=== PATIENT | female | born 1995 | race Hispanic/Latino ===

== ENCOUNTER 2018-10-09 05:29 | Inpatient (IN) | payer MEDICAID, SELFPAY ==
[2018-10-09 06:25] VITALS: BMI 26.8
--- NOTE | 2018-10-09 07:27 | PDOC.FPROB ---
FMR OB H&P: HPI - History of Present Illness Chief Complaint: contractions Indentification: at 38.1 wks by 12.3wks US History of Present Illness: Patient comes in for painful contractions which started at 0200 this morning. She states she had a little bloody show but not much. Denies ROM, bleeding/ burning with urination. She feels baby moving often. First baby was born post dates, she is unsure of exact gestational age. Denies headache, blurry vision, SOB, or swelling. Primary Care Physician: FMR OB H&P: Current - Care : 2 Para: 1 Gestational age: 38.1 Due date: 10/22/18 Dating Criteria: 12.3 wk US - OB Labs Blood type: O RH: positive Antibody Screen: negative HIV: negative RPR: negative HepBsAg: negative Rubella: immune Gonorrhea: negative Chlamydia: negative Pap Smear: negative 1 hour gtt: negative FMR OB H&P: History - Past Medical History PMH: denies - OB History OB History: post dates PPH, D/C, chorioamnionitis with first baby - [employer] History [employer] History: denies STIs or abnormal PAP - Surgical History Sx History: denies - Social History Social History: no smoking, alcohol, or drugs - Family History Family History: denies breast/uterine cancers [facility]MR OB H&P: Medications - Current Home Medications: Medication Instructions Recorded Confirmed Type PNV No.118/Iron Fumarate/FA 1 tablet PO DAILY 06/09/14 10/09/18 History [ 19 Chewable Tablet] Ferrous Sulfate 325 mg PO BID #0 tablet 06/14/14 10/09/18 Rx Doxylamine Succinate/Vit B6 10 mg PO DAILY 10/09/18 10/09/18 History [Laura MOY] Allergies/Adverse Reactions: Allergies Allergy/AdvReac Type Severity Reaction Status Date / Time No Known Allergies Allergy Verified 10/09/18 06:26 FMR OB H&P: ROS - Review of Systems General: denies: fever/chills, night sweats, fatigue Eyes: denies: vision changes ENT: denies: nasal congestion Cardiovascular: denies: palpitation, edema Respiratory: denies: cough, shortness of breath Gastrointestinal: denies: abdominal pain, nausea, vomiting, diarrhea Genitourinary (Female): denies: dysuria, hematuria Musculoskeletal: denies: pain, stiffness Neurologic: denies: numbness, syncope, loss of counsciousness Integumentary: denies: rash Hematologic/Lymphatic: denies: prolonged or excessive bleeding FMR OB H&P: Vital Signs - Maternal Vital signs: Vital Signs - First Documented Temp Pulse Resp BP 98.9 F 77 20 117/82 10/09/18 06:06 10/09/18 06:06 10/09/18 06:06 10/09/18 06:06 - Heart Tones Baseline: 120 Variability: moderate Acceleration: present Deceleration: absent Category: category 1 [place] [facility] [place] contractions every: 3-5 min FMR OB H&P: Physical Exam - Physical Exam General: NAD, awake, alert and oriented HEENT: normocephalic and atraumatic, PERRLA, EOMI Neck: supple Heart: RRR, normal S1/S2, no murmurs/rubs/gallops, pulses present General: CTAB, no respiratory distress, good air movement, no wheezing Abdomen: soft, gravid, non-tender Musculoskeletal: normal gait and station, pulses present Neurological: cranial nerves II through XII intact Skin: no rash, good tugor, capillary refill <2 seconds FMR OB H&P: A/P - Problem List (1) Current Visit: Yes Status: Acute Discussion: Date/Time: 10/09/18 0725 23 yo at 38.1 wks here for contractions starting at 0200 # Labor check - cxns q3-5min, cat 1 strip - 4/50/-3 at 0710 - ant fundal placenta, hadlock 44% - PO hydrate, re-check in 2 hours, triage for now - GBS neg # Transamnititis - ALT of 46 - Hep A total Ab positive - then Hep A IgM, IgG - latest CMP WNL This H&P was discussed with Dr. Garcia who agrees with the above documentation and plan.
[2018-10-09] MEDS ORDERED: Ondansetron PF 4 MG/2 ML Vial IVP PRN ×2 (09:17→12:30)
[2018-10-09] MEDS ORDERED: Promethazine HCl 25 MG/ML VIAL IM PRN ×2 (09:17→12:30)
[2018-10-09] MEDS ORDERED: NS / Oxytocin 40 units/1000ml 1,000 ML IV PRN (09:17)
[2018-10-09] MEDS ORDERED: Ibuprofen 800 MG TAB PO PRN (09:17)
[2018-10-09] MEDS ORDERED: Lidocaine 1% (PF) 30 ML VIAL SC PRN (09:17)
--- NOTE | 2018-10-09 09:20 | PDOC.LDPN ---
Labor & Delivery Progress Note - Subjective Subjective: painful contractions - Objective Vital signs reviewed and normal: yes General: NAD, breathing through contractions Uterine fundus: non tender Dilation: 7 Effacement: 90% Station: -2 FHT: category 1 [place] contractions every: 3-5min - Assessment (1) Current Visit: Yes Status: Acute -: 23 yo at 38.1 wks here for contractions starting at 0200 # [place], active labor - cxns q3-5min, cat 1 strip - 4/50/-3 at 0710 - 7/90/-2 at 0910 - ant fundal placenta, hadlock 44% - GBS neg # Transamnititis - ALT of 46 - Hep A total Ab positive - then Hep A IgM, IgG - latest CMP WNL - will repeat CMP # Hx PPH, retained placenta - will have 2 units cross-matched - misoprostil available at bedside This H&P was discussed with Dr. Garcia who agrees with the above documentation and plan.
[2018-10-09] MEDS: Lactated Ringer's 1,000 ML IV SCH ×2 (09:30→11:06)
[2018-10-09 09:49] LABS: Hemoglobin 10.1 g/dL (12.0-16.0); Mean Corpuscular HGB CONC 32.2 g/dL (32.0-36.0); Mean Corpuscular Hemoglobin 24.3 pg (27.0-31.0); Mean Corpuscular Volume 75.7 fL (78.0-98.0); Mean Platelet Volume 12.4 fL (7.4-10.4); Platelet Count 152 thou/uL (130-400); RBC Distribution Width 15.8 % (11.5-14.5); Red Blood Cell (RBC) Count 4.16 mill/uL (4.20-5.40); White Blood Cell (WBC) Count 8.6 thou/uL (4.8-10.8)
[2018-10-09] MEDS ORDERED: Fentanyl 4 mcg/Bup 0.1% Cadd 100 ML ONE (10:06)
[2018-10-09 10:29] LABS: ALT (SGPT) 24 U/L (8-55); AST (SGOT) 30 U/L (5-34); Albumin 3.4 g/dL (3.5-5.0); Alkaline Phosphatase 236 U/L (40-150); Anion Gap 13 mmol/L (10-20); BUN (Urea Nitrogen) 5 mg/dL (7.0-18.7); Bilirubin, Total 0.4 mg/dL (0.2-1.2); Calc. Creatinine Clearance 140 mL/min (70-130); Calcium 9.3 mg/dL (7.8-10.44); Carbon Dioxide 20 mmol/L (22-29); Chloride 105 mmol/L (98-107); Estimated GFR-MDRD Greater than 90; Globulin 3.5 g/dL (2.4-3.5); Glucose 83 mg/dL (70-105); Protein, Total 6.9 g/dL (6.0-8.3); Sodium 134 mmol/L (136-145)
[2018-10-09] MEDS ORDERED: Lidocaine 1.5% w/Epi 1:200K 30 ML VIAL (Epid Use) ONE (10:29)
[2018-10-09 10:45] LABS: Syphilis Antibody Nonreactive (Nonreactive); Syphilis Antibody Index 0.03 S/CO (<1.00 Non-Reactive)
[2018-10-09 10:46] LABS: HBSAg Index 0.23 S/CO (0-0.99); Hep B Surf Ag Non-Reactive S/CO (NonReactive)
[2018-10-09] MEDS ORDERED: Misoprostol 200 MCG TAB ONE (11:08)
[2018-10-09] MEDS ORDERED: NS / Oxytocin 40 units/1000ml 1,000 ML ONE (11:08)
[2018-10-09] MEDS ORDERED: Lidocaine 1% (PF) 30 ML VIAL ONE (11:08)
[2018-10-09] MEDS ORDERED: Carboprost 250 MCG/ML AMP ONE (11:09)
--- NOTE | 2018-10-09 12:10 | PDOC.LDPN ---
Labor & Delivery Progress Note - Subjective Subjective: comfortable - Objective Vital signs reviewed and normal: yes General: NAD, resting Uterine fundus: non tender Dilation: 6 Effacement: 90% Station: -2 FHT: category 1 [place] contractions every: 5 min AROM: clear fluid FSE placed: yes - Assessment (1) Current Visit: Yes Status: Acute -: 23 yo at 38.1 wks here for contractions starting at 0200 # [place], active labor - cxns q3-5min, cat 1 strip - 4/50/-3 at 0710 - 7/90/-2 at 0910 - 6/90/-2 at 1200, AROM, lots of clear fluid - ant fundal placenta, hadlock 44% - GBS neg - consider amnioinfusion and IUPC if variable decels # Transamnititis - ALT of 46 - Hep A total Ab positive - then Hep A IgM, IgG - latest CMP WNL - Normal AST/ALT today - elevated ALP # Hx PPH, retained placenta - will have 2 units cross-matched - misoprostil available at bedside This H&P was discussed with Dr. Nolan who agrees with the above documentation and plan. Addendum - Attending - Attending Attestation Date/Time: 10/09/18 0862 I personally evaluated the patient and discussed the management with Dr. Bowling. I agree with the History, Examination, Assessment and Plan documented above with any addition or exceptions noted below.
[2018-10-09] MEDS ORDERED: Eucerin (Mineral Oil/Petrolatum,White) 30 gm Jar TOP PRN (12:30)
[2018-10-09] MEDS ORDERED: Fentanyl 4 mcg/Bupivacaine 0.1% Cassette 100 ML EPIDURAL SCH (12:30)
[2018-10-09] MEDS ORDERED: Acetaminophen 325 MG TAB PO PRN (12:30)
[2018-10-09] MEDS ORDERED: Lactated Ringer's 500 ML IV PRN (12:30)
[2018-10-09] MEDS ORDERED: diphenhydrAMINE 50 MG/ML VIAL IVP PRN (12:30)
[2018-10-09] MEDS ORDERED: Communication Order-Pharmacy FS SCH (12:30)
[2018-10-09] MEDS ORDERED: Naloxone HCl 0.4 mg/ml Vial IVP PRN ×2 (12:30)
[2018-10-09] MEDS ORDERED: ePHEDrine/0.9% NaCl/PF SYRINGE 50 mg/10 ml SLOW IVP PRN (12:30)
[2018-10-09] MEDS ORDERED: CEFAZOLIN 2 GM/50 ML BAG ONE (12:32)
[2018-10-09] MEDS ORDERED: Bicitra 30 ML UDCUP ONE (12:32)
--- NOTE | 2018-10-09 12:49 | PDOC.LDPN ---
Labor & Delivery Progress Note - Subjective Subjective: comfortable - Objective Vital signs reviewed and normal: yes General: NAD, breathing through contractions Uterine fundus: non tender Dilation: 6 Effacement: 90% Station: 0 FHT: category 1 [place] contractions every: 3 min AROM: clear fluid IUPC placed: yes FSE placed: yes Resuscitative measures: amniofusion - Assessment (1) Current Visit: Yes Status: Acute -: 23 yo at 38.1 wks here for contractions starting at 0200 # [place], active labor - cxns q3-5min, cat 1 strip - 50/-3 at 0710 - 90/-2 at 0910 - 90/-2 at 1200, AROM, lots of clear fluid - /0 at 1245, IUPC in place, amnioinfusion - ant fundal placenta, hadlock 44% - GBS neg - there were multiple deep decelerations, variable after AROM - extensive exam for cord prolapse was completed, no cord was identified - IUPC was placed and amnioinfusion initiated - after amnio-infusion tracing is improved, will monitor closely # Transamnititis - ALT of 46 - Hep A total Ab positive - then Hep A IgM, IgG - latest CMP WNL - Normal AST/ALT today - elevated ALP # Hx PPH, retained placenta - will have 2 units cross-matched - misoprostil available at bedside This H&P was discussed with Dr. Nolan who agrees with the above documentation and plan. Addendum - Attending - Attending Attestation Date/Time: 10/09/18 7018 I personally evaluated the patient and discussed the management with Dr. Bowling. I agree with the History, Examination, Assessment and Plan documented above with any addition or exceptions noted below.
--- NOTE | 2018-10-09 14:20 | PDOC.LDPN ---
Labor & Delivery Progress Note - Objective Vital signs reviewed and normal: yes General: NAD Uterine fundus: palpable contractions Dilation: 10 cm Effacement: 100% Station: 2+ FHT: category 2, acceleration absent, early decelerations, variability present [place] contractions every: 2-4 minutes Other exam findings: REGGIE position IUPC placed: yes Resuscitative measures: amniofusion, maternal IV fluids, maternal position change - Assessment (1) Current Visit: Yes Status: Acute Qualifiers: Weeks of gestation: 38 weeks Qualified Code(s): Z3A.38 - 38 weeks gestation of Plan: continue plan of care -: Variable decels resolved with resuscitative measures above, including amnioinfusion. Pt. now completely dilated and at +1-+2 station. Trial of pushing demonstrated pretty ineffective push with epidural. Will allow mom to "labor down" for another hour and reassess baby for further descent (hopefully to ) before starting to push.
[2018-10-09] MEDS ORDERED: Lanolin Ointment 7 GM TUBE TOP PRN (15:31)
[2018-10-09] MEDS ORDERED: Bisacodyl 10 MG SUPP PR PRN (15:31)
[2018-10-09] MEDS ORDERED: Milk Of Magnesia 30 ML UDCUP PO PRN (15:31)
--- NOTE | 2018-10-09 15:36 | PDOC.OPDEL ---
OB Operative/Delivery Note Delivery Dr/Surgeon: Pope Alexander Szynkarski Pre-Delivery Diagnosis: active labor Procedure/Post Delivery Dx: spontaneous vaginal delivery Anesthesia: epidural - Findings A Sex: female - 1 min: 8 - 5 min: 9 - Additional Findings/Plan Placenta delivered: spontaneous Repaired Obstetrical Laceration: 1st degree Compilations/Other Findings: This is 23yo F @ 38.1wks who delivered a viable F infant at 1513 on . QBL 232ml. Following an antepartum course complicated by variable decelerations that recovered, a vigorous F was delivered over an intact perineum in the occipitoanterior position. Anterior Shoulder and then remainder of the body delivered. Nuchal cord x 1 around neck and left foot. The head was held down and mouth and nares were bulb suctioned. Cord clamped after delayed cord clamping and cut and cord blood collected. Placenta delivered intact in the [place] presentation with a 3 vessel cord noted. Fundal massage was performed and the fundus was firm. The cervix and vagina were inspected and first degree laceration noted and repaired with 2-0 vicryl with figure of eight stitch with good approximation and hemostasis. went to nursery in good condition for routine care. Apgars were 8/9 at 1 & 5 minutes, respectively. Patient tolerated delivery well and went to after routine recovery/care. Post delivery plan: routine recovery
[2018-10-09 15:40] LABS: Actual Bicarbonate (HCO3a) 19.1 mEq/L (22-28); Analyzer IN Cardio OR; Base Excess (BEa) -5.4 mEq/L (-2.0 to +3.0)
[2018-10-09] MEDS: Ferrous Sulfate 325 MG TAB PO SCH (19:29)
[2018-10-09] MEDS: Docusate Calcium (SURFAK) 240 MG CAP PO SCH (22:17)
[2018-10-10] MEDS: Lactated Ringer's 1,000 ML IV SCH (05:04)
[2018-10-10 07:43] LABS: Hemoglobin 8.8 g/dL (12.0-16.0); Mean Corpuscular HGB CONC 31.9 g/dL (32.0-36.0); Mean Corpuscular Hemoglobin 24.7 pg (27.0-31.0); Mean Corpuscular Volume 77.6 fL (78.0-98.0); Mean Platelet Volume 12.2 fL (7.4-10.4); Platelet Count 119 thou/uL (130-400); RBC Distribution Width 15.9 % (11.5-14.5); Red Blood Cell (RBC) Count 3.57 mill/uL (4.20-5.40); White Blood Cell (WBC) Count 10.6 thou/uL (4.8-10.8)
--- NOTE | 2018-10-10 08:18 | PDOC.PP ---
Post Progress Note Post Day #: 1 Subjective: Patient is feeling well. She had changed her pad x2 overnight. States about like a normal menses for her. Denies weakness or light-headedness. She is eating well, ambulating well, and passing gas. She denies abdominal pain. She states she would like to go home today if possible. PO intake tolerated: yes Flatus: yes Ambulation: yes Vital Signs (12 hours) Temp Pulse Resp BP Pulse Ox 10/10/18 04:10 97.6 F 60 18 107/60 10/10/18 00:55 56 L 18 144/87 H 10/09/18 22:30 97.6 F 59 L 18 119/66 10/09/18 21:30 98.5 F 72 18 117/74 98 10/09/18 20:25 98.4 F 66 18 115/70 100 Weight Weight 64.41 kg - Physical Examination General: NAD Cardiovascular: no m/r/g, RRR Respiratory: clear to auscultation bilaterally, non-labored breathing Abdominal: + bowel sounds, appropriately TTP Fundus firm & at: umbilicus Neurological: no gross focal deficits Psychiatric: A&Ox3, normal affect Result Diagrams: 10/10/18 06:20 10/09/18 09:54 Additional Labs: Post Labs Blood Type O POSITIVE 10/09/18 09:54 Hep Bs Antigen Non-Reactive S/CO (NonReactive) 10/09/18 09:54 (1) Status: Acute Qualifiers: Weeks of gestation: 38 weeks Qualified Code(s): Z3A.38 - 38 weeks gestation of - Assessment/Plan 23 yo PP day 1 # PP day 1 - asymptomatic - eating, ambulating, passing gas - breast/bottle feeding - hgb 10.2 -> 8.8 # Transamnititis - ALT of 46 - Hep A total Ab positive - then Hep A IgM, IgG - AST/ALT yesterday WNL, elevated ALP 236, repeated CMP this AM # Hx PPH, retained placenta - QBL 232 This H&P was discussed with Dr. Garcia who agrees with the above documentation and plan.
[2018-10-10 08:23] VITALS: BP 125/74; TEMP 97.9
[2018-10-10] MEDS ORDERED: Adacel (T-DAP) 0.5 ML SYRINGE IM ONE (09:00)
[2018-10-10] MEDS ORDERED: Prenatal Vitamin 1 TAB PO SCH (09:00)
[2018-10-10 10:08] LABS: ALT (SGPT) 21 U/L (8-55); AST (SGOT) 28 U/L (5-34); Albumin 2.9 g/dL (3.5-5.0); Alkaline Phosphatase 187 U/L (40-150); Anion Gap 12 mmol/L (10-20); BUN (Urea Nitrogen) 5 mg/dL (7.0-18.7); Bilirubin, Total 0.3 mg/dL (0.2-1.2); Calc. Creatinine Clearance 147 mL/min (70-130); Calcium 9.3 mg/dL (7.8-10.44); Carbon Dioxide 20 mmol/L (22-29); Chloride 110 mmol/L (98-107); Estimated GFR-MDRD Greater than 90; Glucose 108 mg/dL (70-105); Potassium 3.5 mmol/L (3.5-5.1); Protein, Total 5.9 g/dL (6.0-8.3); Sodium 138 mmol/L (136-145)
[2018-10-10] MEDS: Docusate Calcium (SURFAK) 240 MG CAP PO SCH (10:42)
[2018-10-10] MEDS: Ferrous Sulfate 325 MG TAB PO SCH (10:43)
== END 2018-10-10 16:40 | disposition home or self-care (01) | DRG 807 ==
LOC: L&D/OP 05:29 → L&D 09:50 → 3SW 20:38
PROVIDERS: ADMIT Student in an Organized Health Care Education/Training Program; ATTEND Student in an Organized Health Care Education/Training Program
PROC: 10E0XZZ Delivery of Products of Conception, External Approach (ICD-10-PCS; principal; 2018-10-09)
PROC: 0HQ9XZZ Repair Perineum Skin, External Approach (ICD-10-PCS; 2018-10-09)
PROC: 10907ZC Drainage of Amniotic Fluid, Therapeutic from Products of Conception, Via Natural or Artificial Opening (ICD-10-PCS; 2018-10-09)
PROC: 10H07YZ Insertion of Other Device into Products of Conception, Via Natural or Artificial Opening (ICD-10-PCS; 2018-10-09)
DX: O76 Abnormality in fetal heart rate and rhythm complicating labor and delivery (principal); Z37.0 Single live birth; Z3A.38 38 weeks gestation of pregnancy; O70.0 First degree perineal laceration during delivery; O69.81X0 Labor and delivery complicated by cord around neck, without compression, not applicable or unspecified; O26.893 Other specified pregnancy related conditions, third trimester; R74.0 Nonspecific elevation of levels of transaminase and lactic acid dehydrogenase [LDH]; Z79.899 Other long term (current) drug therapy; Z67.40 Type O blood, Rh positive
CPT/HCPCS: 36415; 51702; 80053; 82805; 85027; 86780; 86850; 86900; 86901; 87340; 99285; J2001; J3490